=== PATIENT | female | born 1985 | race Caucasian/White ===

== ENCOUNTER 2018-11-16 14:45 | Emergency (ER) | payer OTHER ==
[2018-11-16 14:51] VITALS: TEMP 98.3; BMI 29.0
--- NOTE | 2018-11-16 16:24 | PDOC ---
Rapid Medical Evaluation Chief Complaint: Lightheaded Time Seen by Provider: 11/16/18 16:20 Medical Evaluation: Allergies Allergy/AdvReac Type Severity Reaction Status Date / Time No Known Allergies Allergy Verified 11/16/18 14:48 Vital Signs Temp Pulse Resp BP Pulse Ox 98.3 F 93 H 18 105/61 100 11/16/18 14:49 11/16/18 14:49 11/16/18 14:49 11/16/18 14:49 11/16/18 14:49 Discharge Disposition - Discharge Dispostion Last Admission D/C Date: 04/27/16 - Referrals - Patient Instructions - Post Discharge Activity
--- NOTE | 2018-11-16 17:17 | PDOC ---
History of Present Illness <CorreaMarisa Joshua - Last Filed: 11/16/18 17:53> - General History Source: Patient Exam Limitations: No Limitations - History of Present Illness Initial Comments: 11/16/18 17:00 33 y/o female with no past medical history presents to the ED with c/o intermittent SOB since this am accompanied with palpitations and mild dizziness. Pt s/p liposuction 3 weeks ago performed in [place] and received 1 init of red cells due to similar symptoms. The pt states did not have repeat labs after transfusions. Pt denies fever, chills, abd pain, urinary complaints or redness to abdomen. Timing/Duration: intermittent Severity: mild Associated Symptoms: reports: shortness of breath, other <Milagros Quach - Last Filed: 11/16/18 18:41> - General Chief Complaint: Lightheaded Stated Complaint: LIGHTHEADED, PALPITATIONS Time Seen by Provider: 11/16/18 16:20 Past History <Marisa Correa - Last Filed: 11/16/18 17:53> - Travel Traveled outside of the country in the last 30 days: No Close contact w/someone who was outside of country & ill: No - Past Medical History Asthma: No Cancer: No Cardiac Disorders: No COPD: No Diabetes: No HTN: No Seizures: No Thyroid Disease: No - Suicide/Smoking/Psychosocial Hx Smoking Status: No Smoking History: Never smoked Have you smoked in the past 12 months: No Number of Cigarettes Smoked Daily: 0 Hx Alcohol Use: No Drug/Substance Use Hx: No Hx Substance Use Treatment: No Patient Lives Alone: No Lives with/in: spouse/SO <Milagros Quach - Last Filed: 11/16/18 18:41> - Past Medical History Allergies/Adverse Reactions: Allergies Allergy/AdvReac Type Severity Reaction Status Date / Time No Known Allergies Allergy Verified 11/16/18 14:48 Home Medications: Ambulatory Orders NK [No Known Home Medication] 11/16/18 Review of Systems - Review of Systems Able to Perform ROS?: No Constitutional: No: Symptoms Reported HEENTM: No: Symptoms Reported Respiratory: Yes: Shortness of Breath Cardiac (ROS): Yes: Lightheadedness, Palpitations Musculoskeletal: No: Symptoms Reported Integumentary: No: Symptoms Reported Neurological: No: Symptoms reported <Milagros Quach - Last Filed: 11/16/18 18:41> *Physical Exam - Vital Signs Last Vital Signs Temp Pulse Resp BP Pulse Ox 98.3 F 86 18 92/47 L 98 11/16/18 14:49 11/16/18 17:24 11/16/18 17:24 11/16/18 17:24 11/16/18 17:24 <Marisa Correa - Last Filed: 11/16/18 17:53> - Vital Signs Last Vital Signs Temp Pulse Resp BP Pulse Ox 98.3 F 93 H 18 105/61 100 11/16/18 14:49 11/16/18 14:49 11/16/18 14:49 11/16/18 14:49 11/16/18 14:49 - Physical Exam General Appearance: Yes: Nourished, Appropriately Dressed. No: Apparent Distress HEENT: negative: Pale Conjunctivae Neck: positive: Supple Respiratory/Chest: positive: Lungs Clear, Normal Breath Sounds. negative: Chest Tender, Respiratory Distress, Accessory Muscle Use Cardiovascular: positive: Regular Rhythm, Regular Rate. negative: Murmur Gastrointestinal/Abdominal: positive: Soft. negative: Tenderness Extremity: positive: Normal Capillary Refill. negative: Pedal Edema Integumentary: positive: Normal Color, Warm, Moist Neurologic: positive: Motor Strength 5/5 (ambulatory) <Milagros Quach - Last Filed: 11/16/18 18:41> Moderate Sedation - Procedure Monitoring Vital Signs: Procedure Monitoring Vital Signs Temperature 98.3 F 11/16/18 14:49 Pulse Rate 86 11/16/18 17:24 Respiratory Rate 18 11/16/18 17:24 Blood Pressure 92/47 L 11/16/18 17:24 O2 Sat by Pulse Oximetry (%) 98 11/16/18 17:24 <Marisa Correa - Last Filed: 11/16/18 17:53> - Procedure Monitoring Vital Signs: Procedure Monitoring Vital Signs Temperature 98.3 F 11/16/18 14:49 Pulse Rate 93 H 11/16/18 14:49 Respiratory Rate 18 11/16/18 14:49 Blood Pressure 105/61 11/16/18 14:49 O2 Sat by Pulse Oximetry (%) 100 11/16/18 14:49 <Milagros Quach - Last Filed: 11/16/18 18:41> ED Treatment Course - LABORATORY CBC & Chemistry Diagram: 11/16/18 17:00 11/16/18 17:00 - ADDITIONAL ORDERS Additional order review: 11/16/18 17:00 RBC 3.42 L MCV 95.0 MCHC 35.0 RDW 14.7 D MPV 8.5 Neutrophils % 51.0 D Lymphocytes % 33.8 D Monocytes % 11.6 H D Eosinophils % 1.5 D Basophils % 2.1 H D <Marisa Correa - Last Filed: 11/16/18 17:53> - LABORATORY CBC & Chemistry Diagram: 11/16/18 17:00 11/16/18 17:00 <Milagros Quach - Last Filed: 11/16/18 18:41> Medical Decision Making - Medical Decision Making The patient was seen and evaluated in conjunction with midlevel provider under my direct supervision, ancillary studies were reviewed. I agree with the plan as outlined by Milagros Quach. HPI as outlined. AMA - does not want to wait for results due to home situation. will update with results with clinical callback. 11/16/18 17:53 11/16/18 17:54 <Marisa Correa - Last Filed: 11/16/18 17:53> - Medical Decision Making 11/16/18 17:21 CC: sob, palpitations and weakness x 2-3 days, s/p liposuction 3 weeks ago Exam: no acute findings Plan: cbc, comp, d- dimer, ekg 11/16/18 17:42 Pt states unable to stay and has to get her 2 year old daughter. Pt will sign out AMA but will be contacted if labs are abnormal and states will return if need be 11/16/18 18:40 Laboratory Tests 11/16/18 11/16/18 11/16/18 17:00 17:00 17:00 WBC 6.4 Hgb 11.4 Hct 32.5 Plt Count 458 H D Neutrophils % 51.0 D Monocytes % 11.6 H D D-Dimer 2350 H Sodium 141 Potassium 4.1 Chloride 108 H Carbon Dioxide 26 Anion Gap 7 L BUN 12 Creatinine 0.8 Creat Clearance w eGFR > 60 Random Glucose 72 L Calcium 8.6 Total Bilirubin 0.3 AST 16 ALT 22 Alkaline Phosphatase 60 Total Protein 6.8 Albumin 3.5 Called pt at home and will return to the ED secondary to elevated D-Dimer <Milagros Quach - Last Filed: 11/16/18 18:41> *DC/Admit/Observation/Transfer <Marisa Correa - Last Filed: 11/16/18 17:53> <Milagros Quach - Last Filed: 11/16/18 18:41> Diagnosis at time of Disposition: Palpitations - Discharge Dispostion Disposition: AGAINST MEDICAL ADVICE Condition at time of disposition: Unchanged/Unknown - Patient Instructions Printed Discharge Instructions: DI for Palpitations Additional Instructions: Understand you are leaving Against Medical Advice and are assuming all responsibility for your health. If any results are positive, I will contact you immediately. - Post Discharge Activity Forms/Work/School Notes: Back to Work
[2018-11-16 17:25] VITALS: BP 92/47; PULSE 86
[2018-11-16 17:25] LABS: BASO % 2.1 % (0-2.0); EOS % 1.5 % (0-4.5); HEMATOCRIT 32.5 % (32.4-45.2); HEMOGLOBIN 11.4 GM/dL (10.7-15.3); LYMPH % 33.8 % (8-40); MCH 33.2 pg (25.7-33.7); MEAN PLT VOLUME 8.5 fl (7.5-11.1); MONO % 11.6 % (3.8-10.2); PLATELET COUNT 458 K/MM3 (134-434); RBC 3.42 M/mm3 (3.60-5.2); RDW 14.7 % (11.6-15.6); WHITE BLOOD COUNT 6.4 K/mm3 (4.0-10.0)
[2018-11-16 17:59] LABS: ALBUMIN 3.5 g/dl (3.4-5.0); ALK PHOS 60 U/L (45-117); ANION GAP 7 MMOL/L (8-16); BILIRUBIN,TOTAL 0.3 mg/dL (0.2-1); BLOOD UREA NITROGEN 12 mg/dL (7-18); CALCIUM 8.6 mg/dL (8.5-10.1); CHLORIDE 108 mmol/L (98-107); CO2 26 mmol/L (21-32); CREATININE 0.8 mg/dL (0.55-1.3); GLUCOSE,RANDOM 72 mg/dL (74-106); POTASSIUM 4.1 mmol/L (3.5-5.1); SGOT/AST 16 U/L (15-37); SGPT/ALT 22 U/L (13-61); SODIUM 141 mmol/L (136-145); TOT PROT 6.8 g/dl (6.4-8.2)
--- NOTE | 2018-11-17 19:14 | EKG ---
Test Reason : Blood Pressure : / mmHG Vent. Rate : 085 BPM Atrial Rate : 085 BPM P-R Int : 162 ms QRS Dur : 082 ms QT Int : 352 ms P-R-T Axes : 056 045 041 degrees QTc Int : 418 ms NORMAL SINUS RHYTHM NORMAL ECG NO PREVIOUS ECGS AVAILABLE Confirmed by SKY CHILD, MELANIE ([id number]) on 11/17/2018 7:13:53 PM Referred By: Confirmed By:MELANIE SWANSON MD
== END 2018-11-16 17:31 | disposition left against medical advice (07) ==
LOC: JER 14:45
DX: R00.2 Palpitations (principal)
CPT/HCPCS: 36415; 80053; 85025; 85379; 93005; 93010; 99282-25

== ENCOUNTER 2018-11-16 19:28 | Emergency (ER) | payer OTHER ==
[2018-11-16 19:35] VITALS: BMI 29.8
--- NOTE | 2018-11-16 20:03 | PDOC ---
History of Present Illness - General Chief Complaint: Palpitations Stated Complaint: PCP SENT/CATSCAN Time Seen by Provider: 11/16/18 19:38 History Source: Patient Exam Limitations: No Limitations - History of Present Illness Initial Comments: 11/16/18 19:53 33 YOF who had tummy tuck 3 weeks ago, 7 hour flight one week ago, p/w palpitations, SOB, strange sensation in her left anterior superior chest unlike any sensation she has had before. Denies any chance of being . Took no medications for her symptoms. Has not had SOB or palpitations. Used to have palpitations and syncope associated with anemia and has had blood xfused in the past for this. Had blood xfusion after her tummy tuck 3 weeks ago. Was seen here in the ED earlier today and had D-dimer >2000 but had to leave AMA before this had resulted because of childcare concerns. Was called with the results and asked to come back. She is not on exogenous hormones, denies leg pain/ swelling, no hemoptysis. Past History - Past Medical History Allergies/Adverse Reactions: Allergies Allergy/AdvReac Type Severity Reaction Status Date / Time No Known Allergies Allergy Verified 11/16/18 19:33 Home Medications: Ambulatory Orders NK [No Known Home Medication] 11/16/18 Asthma: No Cancer: No Cardiac Disorders: No COPD: No Diabetes: No HTN: No Seizures: No Thyroid Disease: No - Suicide/Smoking/Psychosocial Hx Smoking Status: No Smoking History: Never smoked Have you smoked in the past 12 months: No Number of Cigarettes Smoked Daily: 0 Hx Alcohol Use: No Drug/Substance Use Hx: No Hx Substance Use Treatment: No Review of Systems - Review of Systems Able to Perform ROS?: Yes Comments:: 11/16/18 20:16 GEN: no fever, chills, malaise, generalized weakness, or weight change HEENT: no ear pain, sore throat, vision change, or eye pain CV: chest discomfort, palpitations, no lightheadedness, syncope, or edema RESP: SOB, no cough, or wheezing GI: no abdominal pain, nausea, vomiting, diarrhea, constipation, or white/black/ bloody stool : no dysuria, hematuria, incontinence, retention, bleeding, or discharge MSK: no neck/back pain, muscle weakness/pain, or joint swelling/pain NEURO: no headache, seizure, vertigo, numbness, tingling, or focal weakness PSYCH: no substance use, no behavior change SKIN: no jaundice, no rash ROS otherwise negative except as noted in HPI *Physical Exam - Vital Signs Last Vital Signs Temp Pulse Resp BP Pulse Ox 98.2 F 72 20 102/73 98 11/17/18 00:51 11/17/18 00:51 11/17/18 00:51 11/17/18 00:51 11/17/18 00:51 - Physical Exam Comments: 11/16/18 20:17 GENERAL: well-appearing, a bit anxious, accompanied by , A/Ox4, no distress, answers questions appropriately, occasionally tearful HEENT: PERRLA, EOMI, moist mucous membranes NECK/BACK: no midline ttp, no spinal stepoff or deformity, no hematoma, full ROM , neck supple CARDIOVASCULAR: regular rate/rhythm, normal S1S2, no MGR, strong peripheral pulses, capillary refill <2 seconds, extremities wwp, no edema CHEST WALL: no tenderness to compression, no skin changes, no costal stepoff/ deformity LUNGS/RESPIRATORY: no respiratory distress, CTAB GI/ABDOMEN: symmetric [id number], normoactive BS, soft, no ttp, no midline pulsatile masses : no CVA tenderness EXTREMITIES: no muscle atrophy, no acute deformity, no edema, no calf tenderness SKIN: warm and dry, no pallor, no jaundice, no rash, no bruising, no skin breakdown, no cuts, no lesions NEUROLOGICAL: GCS 15, CN II-XII grossly intact, 5/5 strength proximally and distally, no facial droop Moderate Sedation - Procedure Monitoring Vital Signs: Procedure Monitoring Vital Signs Temperature 98.2 F 11/17/18 00:51 Pulse Rate 72 11/17/18 00:51 Respiratory Rate 20 11/17/18 00:51 Blood Pressure 102/73 11/17/18 00:51 O2 Sat by Pulse Oximetry (%) 98 11/17/18 00:51 ED Treatment Course - ADDITIONAL ORDERS Additional order review: Laboratory Results 11/16/18 20:00 Urine Color Ltyellow Urine Appearance Clear Urine pH 6.0 Ur Specific [place] 1.015 Urine Protein Negative Urine Glucose (UA) Negative Urine Ketones Negative Urine Blood Negative Urine Nitrite Negative Urine Bilirubin Negative Urine Urobilinogen Negative Ur Leukocyte Esterase Negative Urine HCG, Qual Negative - RADIOLOGY Radiology Studies Ordered: Category Date Time Status CHEST CTA [CT] Stat CT Scan 11/16/18 19:41 Completed DUPLEX VASCUL US-2LEGS [US] Stat Ultrasound 11/16/18 22:50 Completed Medical Decision Making - Medical Decision Making 11/16/18 20:18 Adult female patient p/w SOB, palpitations, strange sensation in chest. Initial Vital Signs Temp Pulse Resp BP Pulse Ox 98.4 F 67 18 93/61 100 11/16/18 19:33 11/16/18 19:33 11/16/18 19:33 11/16/18 19:33 11/16/18 19:33 Exam: As noted in Physical Exam section. DDX IBNLT: PE, tachyarrhythmia (e.g. SVT, re-entrant tachycardia, WPW, Brugada, long QT, AF/AFL w/ RVR, MAT, ventricular dysrhythmia), ischemia (ACS), structural heart condition (MVP, mitral stenosis, atrial enlargement, HOCM), anxiety/panic, hypoxia, anemia (e.g. hemorrhage from heavy menstruation, ruptured ectopic, etc), PE, PTX, bronchitis/PNA, sepsis/shock, tamponade, metabolic (e.g. DKA, hypoglycemia), thyroid condition, catecholamine surge ( e.g. pheochromocytoma), anxiety/panic disorder, medication effect, substance use , etc. W/U ordered: Labs were previously completed; added are UA, UCx, hCG, chest CTA, EKG TX ordered: IV Tele monitor EKG: Reviewed; results as noted in ECG Review section. CT PE protocol: nothing acute Laboratory Tests 11/16/18 20:00 Urine Color Ltyellow Urine Appearance Clear Urine pH 6.0 Ur Specific [place] 1.015 Urine Protein Negative Urine Glucose (UA) Negative Urine Ketones Negative Urine Blood Negative Urine Nitrite Negative Urine Bilirubin Negative Urine Urobilinogen Negative Ur Leukocyte Esterase Negative Urine HCG, Qual Negative Reassessment: Patient noting mild lightheadedness similar to chronic. Also noting mild BLE pain and tingling. I have placed order for Duplex BLE r/o DVT. Repeat VS: DISCHARGE The Pt has gotten significant relief of symptoms while in the ED. She does not have workup findings concerning for life-threatening arrhythmia or other dangerous cause. She is appropriate for discharge home with close outpatient f/u. She and her parents are comfortable with this plan. They state they will follow up with her primary care provider in 1-3 days. Return precautions are discussed with Pt and family and she will come back to the ER if necessary. *DC/Admit/Observation/Transfer Diagnosis at time of Disposition: Palpitations, Lightheadedness - Discharge Dispostion Disposition: HOME Condition at time of disposition: Stable Decision to Admit order: No - Referrals [place] [facility] [place] [facility] [place] Group] - Patient Instructions Printed Discharge Instructions: DI for Palpitations Additional Instructions: You were seen in the ER for palpitations, lightheadedness, and strange sensation in your chest. We did lab work on the blood and urine, an electrocardiogram, CT scan imaging of the chest, and ultrasound imaging of the legs. We did not see any blood clot. All the symptoms had resolved by the end of your ER visit. After our assessment, we do not believe you are having a medical emergency at this time, and we believe you are safe to go home. Please stay well hydrated and eat a balanced diet. Please follow up with your primary care provider(s) in 1-3 days. We are giving you referral info in this packet. Call their clinic as soon as possible, tell them you were seen in the ER for passing out, and tell them you need an appointment. If you have any new or worsening symptoms, especially another episode of fainting, palpitations, chest discomfort, shortness of breath, sweats, nausea, or other symptoms, please come back to the ER at any time (24 hours a day). If you are having severe or life threatening symptoms, or symptoms that make it unsafe to drive or have someone drive you, please call 911. - Post Discharge Activity Forms/Work/School Notes: Back to Work
--- NOTE | 2018-11-16 20:10 | PDOC ---
Attending Attestation - Resident Resident Name: Elayne Noyola - ED Attending Attestation I have performed the following: I have examined & evaluated the patient, The case was reviewed & discussed with the resident, I agree w/resident's findings & plan, Exceptions are as noted - HPI HPI: 11/16/18 20:58 The patient is a 33 year old female, with a significant PMH of who presents to the emergency department with palpitations, shortness of breath, and a strange sensation to the left anterior chest today. The patient states she had a tummy tuck 3 weeks ago and 7 hour flight a week ago. Patient was seen in this ED earlier today, and was found to have a D-Dimer >2000 but left AMA prior to having a CTA performed. Patient returns as her symptoms are persistent. The patient denies chest pain, headache and dizziness. Denies fever, chills, nausea, vomit, diarrhea and constipation. Denies dysuria, frequency, urgency and hematuria. Allergies: NKA Past surgical history: None reported. Social history: No reported alcohol, drug or cigarette use. - Physicial Exam PE: 11/16/18 21:45 GENERAL: The patient is awake, alert, and fully oriented, Nontoxic - in no acute distress. HEAD: Normocephalic, atraumatic. EYES: extraocular movements intact, sclera anicteric, conjunctiva clear. ENT: Normal voice, Moist mucous membranes. NECK: Normal range of motion, supple LUNGS: Breath sounds equal, clear to auscultation bilaterally. No wheezes, no rhonchi, no rales. HEART: Regular rate and rhythm, normal S1 and S2 without murmur, rub or gallop. ABDOMEN: Soft, nontender, normoactive bowel sounds. No guarding, no rebound. . No CVA tenderness EXTREMITIES: Normal range of motion, neg homans, no calf tenderness NEUROLOGICAL: No facial assymetry, Normal speech, PSYCH: Normal mood, normal affect. SKIN: Warm, Dry, normal turgor, - Medical Decision Making 11/16/18 20:10 33y F no pmhx presents with chest discomfort and occasional palpitatinos. recently had a abdominoplasty 3 weeks ago and a recent flight. pt denies hemoptysis, LE edema, chest pain, l[place]en. no hx of pe/dvts. pt was here earlier today, had lab work obtained with dimer of 2k, but had to leave due to lack of child support agent and is now here to complete her care. will obtain CTA to r/o PE pt well appearing otherwise 11/16/18 21:45 11/16/18 23:03 cta negative for pe will obtain duplex to r/o dvt dimer may be elevated secondary to her procedure
[2018-11-16 20:26] LABS: URINE APPEARANCE CLEAR; URINE BILIRUBIN NEGATIVE (<2.0 mg/dL); URINE COLOR LTYELLOW; URINE GLUCOSE (UA) NEGATIVE (NEGATIVE); URINE KETONE NEGATIVE (NEGATIVE); URINE LEUK ESTERASE NEGATIVE (NEGATIVE); URINE NITRITE NEGATIVE (NEGATIVE); URINE PROTEIN NEGATIVE (NEGATIVE); URINE UROBILINOGEN NEGATIVE mg/dL (0.2-1.0)
[2018-11-16 20:27] LABS: HCG,QUALITATIVE URINE Negative
[2018-11-17 00:52] VITALS: BP 102/73; PULSE 72; TEMP 98.2
== END 2018-11-17 01:03 | disposition home or self-care (01) ==
LOC: JER 19:28
DX: R00.2 Palpitations (principal); R42 Dizziness and giddiness; M79.604 Pain in right leg; M79.605 Pain in left leg; R20.2 Paresthesia of skin
CPT/HCPCS: 71275-TC; 81003; 84703; 87086; 87186; 93970-TC; 99283-25

== ENCOUNTER 2019-02-25 00:50 | Observation (INO) | payer OTHER ==
[2019-02-25 01:26] VITALS: BMI 29.0
[2019-02-25] MEDS ORDERED: SODIUM CHLORIDE 0.9% 500 ML INFUS.BAG IV ONE (01:29)
[2019-02-25] MEDS ORDERED: ACETAMINOPHEN 1000 MG/100 ML VIAL (NON FORMULARY) IVPB ONE (01:29)
--- NOTE | 2019-02-25 01:30 | PDOC ---
History of Present Illness - General Stated Complaint: ABDOMINAL PAIN History Source: Patient Exam Limitations: No Limitations - History of Present Illness Initial Comments: 33YOF with h/o abdominoplasty performed by a surgeon in [facility] in 10/2018, who p/w surgical incision irritation worsening for the past 2 weeks and now 1 week of worsening intra-abdominal pain worse on the right side. She notes this all started when she began using a lightening cream on the surgical scar from her abdominoplasty about 3 weeks ago. She only used it for 3 days because it started to become irritated. It has been worsening since that time and now is sore. She has been having nausea as well, but no f/c, vomiting, diarrhea, constipation, numbness, tingling, weakness, SOB, chest pain, or dysuria. She notes some increased white vaginal discharge. Her LMP was 3 weeks ago and she does not know whether or she not she may be . Past History - Past Medical History Allergies/Adverse Reactions: Allergies Allergy/AdvReac Type Severity Reaction Status Date / Time No Known Allergies Allergy Verified 11/16/18 19:33 Home Medications: Ambulatory Orders NK [No Known Home Medication] 11/16/18 Asthma: No Cancer: No Cardiac Disorders: No COPD: No Diabetes: No HTN: No Seizures: No Thyroid Disease: No - Suicide/Smoking/Psychosocial Hx Smoking Status: No Smoking History: Never smoked Have you smoked in the past 12 months: No Number of Cigarettes Smoked Daily: 0 Hx Alcohol Use: No Drug/Substance Use Hx: No Hx Substance Use Treatment: No Review of Systems - Review of Systems Able to Perform ROS?: Yes Comments:: 02/25/19 02:07 GEN: no fever, chills, malaise, generalized weakness, or weight change HEENT: no ear pain, sore throat, vision change, or eye pain CV: no chest pain, palpitations, lightheadedness, syncope, or edema RESP: no cough, wheezing, or SOB GI: abdominal pain, nausea, no vomiting, diarrhea, constipation, or white/black/ bloody stool : no dysuria, hematuria, incontinence, retention, bleeding, or discharge MSK: no neck/back pain, muscle weakness/pain, or joint swelling/pain NEURO: no headache, seizure, vertigo, numbness, tingling, or focal weakness PSYCH: no substance use, no behavior change SKIN: incisional irritation, no jaundice, no rash ROS otherwise negative except as noted in HPI *Physical Exam - Physical Exam Comments: 02/25/19 02:08 GENERAL: a bit uncomfortable but nontoxic-appearing, A/Ox4, no distress except winces when repositioning, answers questions appropriately, accompanied by at bedside HEENT: PERRLA, EOMI, moist mucous membranes NECK/BACK: no midline ttp, no spinal stepoff or deformity, no hematoma, full ROM , neck supple CARDIOVASCULAR: regular rate/rhythm, normal S1S2, no MGR, strong peripheral pulses, capillary refill <2 seconds, extremities wwp, no edema LUNGS/RESPIRATORY: no respiratory distress, CTAB GI/ABDOMEN: low transverse abdominoplasty scar appears healed but with overlying skin desquamation and underlying raw dermis which is all tender, umbilicus with similar desquamation with small amount of active purulent- appearing drainage, abdomen with mild fullness to the right periumbilical area where there is also increased tenderness, mild rebound tenderness, normoactive BS, no midline pulsatile masses : no CVA tenderness, pelvic normal externally, small amount of physiologic- appearing white discharge, no adnexal ttp or CMT EXTREMITIES: no muscle atrophy, no acute deformity SKIN: warm and dry, no pallor, no jaundice, no rash, no bruising, no skin breakdown, no cuts, no lesions NEUROLOGICAL: GCS 15, CN II-XII grossly intact, 5/5 strength proximally and distally, no facial droop ED Treatment Course - LABORATORY CBC & Chemistry Diagram: 02/25/19 02:21 02/25/19 02:21 Medical Decision Making - Medical Decision Making 02/25/19 02:04 33YOF p/w right sided abdominal pain and surgical incision irritation from procedure done in [facility] 5 months ago. Initial Vital Signs Temp Pulse Resp BP Pulse Ox 98.0 F 67 18 116/74 99 02/25/19 01:16 02/25/19 01:16 02/25/19 01:16 02/25/19 01:16 02/25/19 01:16 Exam: As noted in Physical Exam section. DDX IBNLT: intraabdominal abscess or seroma, cholecystitis (calculous vs. acalculous), choledocholithiasis, cholangitis, pancreatitis, appendicitis, gastritis, PUD, colitis, diverticulitis wwo abscess or perforation, renal colic , obstructive uropathy, UTI/pyelonephritis, hernia, SBO, mesenteric/bowel ischemia, bowel perforation, malignancy, ovarian torsion, ovarian cyst, ectopic , PID, TOA, cervicitis, endometriosis, constipation, etc. W/U ordered: Labs as noted below, CT A/P with IV contrast TX ordered: IVF Ofirmev Laboratory Tests 02/25/19 02/25/19 02/25/19 02:21 02:21 02:21 WBC 8.4 RBC 4.04 Hgb 12.6 Hct 37.3 MCV 92.4 MCH 31.2 MCHC 33.7 RDW 13.7 Plt Count 259 D MPV 8.8 Absolute Neuts (auto) 4.1 Neutrophils % 48.3 Lymphocytes % 41.2 H D Monocytes % 8.0 Eosinophils % 1.8 Basophils % 0.7 Nucleated RBC % 0 PT with INR 11.10 INR 0.94 PTT (Actin FS) 28.7 Sodium Potassium Chloride Carbon Dioxide Anion Gap BUN Creatinine Creat Clearance w eGFR Random Glucose Lactic Acid Calcium Phosphorus Magnesium Total Bilirubin AST ALT Alkaline Phosphatase Total Protein Albumin Lipase Serum , Qual Negative Urine Color Urine Appearance Urine pH Ur Specific [place] Urine Protein Urine Glucose (UA) Urine Ketones Urine Blood Urine Nitrite Urine Bilirubin Urine Urobilinogen Ur Leukocyte Esterase 02/25/19 02/25/19 02/25/19 02:21 02:21 02:28 WBC RBC Hgb Hct MCV MCH MCHC RDW Plt Count MPV Absolute Neuts (auto) Neutrophils % Lymphocytes % Monocytes % Eosinophils % Basophils % Nucleated RBC % PT with INR INR PTT (Actin FS) Sodium 139 Potassium 3.8 Chloride 106 Carbon Dioxide 26 Anion Gap 8 BUN 13 Creatinine 0.8 Creat Clearance w eGFR 83.66 Random Glucose 87 Lactic Acid 0.8 Calcium 9.0 Phosphorus 3.7 Magnesium 2.0 Total Bilirubin 0.3 AST 14 L ALT 31 Alkaline Phosphatase 50 Total Protein 7.1 Albumin 3.6 Lipase 190 Serum , Qual Urine Color Yellow Urine Appearance Clear Urine pH 5.5 Ur Specific [place] 1.033 Urine Protein Negative Urine Glucose (UA) Negative Urine Ketones Trace H Urine Blood Negative Urine Nitrite Negative Urine Bilirubin Negative Urine Urobilinogen 1.[address] CT A/P: Reassessment: Patient still painful and tender, comfortable staying. 02/25/19 04:15 The Pts symptoms persist despite ED treatments. The Pt is unsafe for discharge at this time. They require further hospital observation, workup, and treatment. Microblog sent to [facility] for admission. Blank Decision to Admit order is placed per ED protocol. 02/25/19 05:[address] Bailey, in agreement patient going to Med/Surg. Decision to Admit order corrected. *DC/Admit/Observation/Transfer Diagnosis at time of Disposition: Pain in surgical scar, Intractable abdominal pain - Discharge Dispostion Condition at time of disposition: Guarded Decision to Admit order: Yes - Referrals - Patient Instructions - Post Discharge Activity
--- NOTE | 2019-02-25 01:33 | PDOC ---
Attending Attestation - HPI HPI: 02/25/19 01:48 The patient is a 33-year-old female with a past medical history of tummy tuck presents to the emergency department with abdominal pain. The patient reports in October 2018, and the patient had a tummy tuck surgery in [facility]. The patient reports the incision was healing well until 3 weeks ago. The patient states she used a lightening cream she bought online on the incision site and 3 days later she developed a reaction to the site. The patient reports since then the reactions been worsening, currently she had diffused abdominal pain, with associated symptoms of nausea, and vaginal discharge. - Physicial Exam PE: 02/25/19 02:11 GENERAL: Awake, alert, and fully oriented, in no acute distress HEAD: No signs of trauma EYES: PERRLA, EOMI, sclera anicteric, conjunctiva clear ENT: Auricles normal inspection, hearing grossly normal, nares patent, oropharynx clear without exudates. Moist mucosa NECK: Normal ROM, supple, no lymphadenopathy, JVD, or masses LUNGS: Breath sounds equal, clear to auscultation bilaterally. No wheezes, and no crackles HEART: Regular rate and rhythm, normal S1 and S2, no murmurs, rubs or gallops ABDOMEN: +umbilical gooey cellulitis inside, suprapunic scar from the left to the right, expanding entire width, no surrounding cellulitis, +redness, dark brown cracked skin, irritated skin. Periumbilical pain, minimal rebound, minimal guarding. No flank pain. EXTREMITIES: Normal range of motion, no edema. No clubbing or cyanosis. No cords, erythema, or tenderness NEUROLOGICAL: Cranial nerves II through XII grossly intact. Normal speech. SKIN: Warm, Dry, normal turgor, no rashes or lesions noted. - Medical Decision Making 02/25/19 01:48 Documentation prepared by Kajal Dudley, acting as infertility medical assistant for Lynette Goode MD. <Kajal Dudley - Last Filed: 02/25/19 02:11> - Resident Resident Name: Elayne Noyola - ED Attending Attestation I have performed the following: I have examined & evaluated the patient, The case was reviewed & discussed with the resident, I agree w/resident's findings & plan - Medical Decision Making 02/25/19 04:13 Labs normal. Pt has a cellulitic infection of her umbilicus and she will be admitted to med surg ob for surg eval. 02/25/19 04:59 Patient Name: YASMANY WHITEHEAD THIS IS A PRELIMINARY REPORT FROM [facility] DATE OF SERVICE: 2019-02-25 03:33:11 IMAGES: 464 EXAM: CT abdomen and pelvis with intravenous contrast. HISTORY: Abdominal pain COMPARISON: None. FINDINGS: 1. Trace pelvic free fluid, likely physiologic. 2. Limited evaluation of bowel due to the lack of oral contrast, however, there is no bowel obstruction. 3. Negative for free intraperitoneal air. 4. Unremarkable appendix without appendicitis. 5. Kidneys enhance symmetrically without hydronephrosis. 6. Probable mild dependent subcutaneous edema 02/25/19 06:38 <Lynette Goode - Last Filed: 02/25/19 06:38>
[2019-02-25 02:31] LABS: BASO % 0.7 % (0-2.0); EOS % 1.8 % (0-4.5); HEMATOCRIT 37.3 % (32.4-45.2); HEMOGLOBIN 12.6 GM/dL (10.7-15.3); LYMPH % 41.2 % (8-40); MCH 31.2 pg (25.7-33.7); MCHC 33.7 g/dl (32.0-36.0); MEAN CELL VOLUME 92.4 fl (80-96); MEAN PLT VOLUME 8.8 fl (7.5-11.1); NEUT % 48.3 % (42.8-82.8); PLATELET COUNT 259 K/MM3 (134-434); RBC 4.04 M/mm3 (3.60-5.2); RDW 13.7 % (11.6-15.6); WHITE BLOOD COUNT 8.4 K/mm3 (4.0-10.0)
[2019-02-25] MEDS ORDERED: ACETAMINOPHEN INJECTION 100 ML IVPB ONE (02:31)
[2019-02-25 02:41] LABS: PH,URINE 5.5 (5.0-8.0); URINE APPEARANCE CLEAR; URINE BILIRUBIN NEGATIVE (NEGATIVE); URINE COLOR YELLOW; URINE GLUCOSE (UA) NEGATIVE (NEGATIVE); URINE KETONE TRACE (NEGATIVE); URINE LEUK ESTERASE NEGATIVE (NEGATIVE); URINE NITRITE NEGATIVE (NEGATIVE); URINE PROTEIN NEGATIVE (NEGATIVE)
[2019-02-25 02:44] LABS: INR 0.94 (0.83-1.09); PROTHROMBIN TIME (PATIENT) 11.1 SEC (9.7-13.0)
[2019-02-25 02:46] LABS: ACTIVATED PTT 28.7 SECONDS (25.2-36.5)
[2019-02-25 02:59] LABS: ALBUMIN 3.6 g/dl (3.4-5.0); ALK PHOS 50 U/L (45-117); ANION GAP 8 MMOL/L (8-16); BILIRUBIN,TOTAL 0.3 mg/dL (0.2-1); BLOOD UREA NITROGEN 13 mg/dL (7-18); CHLORIDE 106 mmol/L (98-107); CO2 26 mmol/L (21-32); CREATININE 0.8 mg/dL (0.55-1.3); GLUCOSE,RANDOM 87 mg/dL (74-106); LIPASE 190 U/L (73-393); PHOSPHOROUS 3.7 mg/dL (2.5-4.9); POTASSIUM 3.8 mmol/L (3.5-5.1); SGOT/AST 14 U/L (15-37); SGPT/ALT 31 U/L (13-61); SODIUM 139 mmol/L (136-145); TOT PROT 7.1 g/dl (6.4-8.2)
[2019-02-25] MEDS ORDERED: PIPERACILLIN/TAZOB 3.375 GM 3.375 GM in DEXTROSE 5%-WATER - 50 ML IVPB ONE (05:09)
[2019-02-25] MEDS ORDERED: PIPERACILLIN/TAZOB 3.375 GM 3.375 GM/50 ML BAG IVPB ONE (05:12)
--- NOTE | 2019-02-25 05:47 | HP ---
CHIEF COMPLAINT: skin reaction, abdominal pain PCP: Sarah Antoine HISTORY OF PRESENT ILLNESS: This is a 33 year old female with a past medical history of abdominoplasty 2017 in [place] who presents to the ED with abdominal pain and skin reaction x 2 weeks. Pt reports that she began using a skin lightening cream ([place] my skin ultrapotent brightening serum with 2% hydroquinone as active ingredient) on her surgical scars approximately 3 weeks ago for about 3 days but she stopped it when she noticed redness and irritation developing. The redness and irritation has progressively worsened along with abdominal pain and nausea, worse x 4 days. She noticed discharge from the umbilicus region about 4 days ago as well. She denies vomiting, diarrhea, constipation, chest pain, SOB, cough , fever or urinary symptoms. ER course was notable for: (1) WBC 8.4 (2) CT abd/pel without acute findings Recent Travel: pt denies travel since returning from [place] in October PAST MEDICAL HISTORY: pt denies PAST SURGICAL HISTORY: abdominoplasty 10/2018 x 2 Social History: Smoking: pt denies Alcohol: pt denies Drugs: pt denies Family History: mother alive and well maternal grandmother with DM father unk Allergies No Known Allergies Allergy (Verified 11/16/18 19:33) HOME MEDICATIONS: oral contraceptive--pt unsure which one, instructed to bring in REVIEW OF SYSTEMS CONSTITUTIONAL: Absent: fever, chills, diaphoresis, generalized weakness, malaise, loss of appetite, weight change HEENT: Absent: rhinorrhea, nasal congestion, throat pain, throat swelling, difficulty swallowing, mouth swelling, ear pain, eye pain, visual changes CARDIOVASCULAR: Absent: chest pain, syncope, palpitations, irregular heart rate, lightheadedness , peripheral edema RESPIRATORY: Absent: cough, shortness of breath, dyspnea with exertion, orthopnea, wheezing, stridor, hemoptysis GASTROINTESTINAL: Present: abdominal pain Absent: abdominal distension, nausea, vomiting, diarrhea, constipation, melena, hematochezia GENITOURINARY: Absent: dysuria, frequency, urgency, hesitancy, hematuria, flank pain, genital pain MUSCULOSKELETAL: Absent: myalgia, arthralgia, joint swelling, back pain, neck pain SKIN: Present: redness, irritation to abdominal surgical scars Absent: rash, itching, pallor HEMATOLOGIC/IMMUNOLOGIC: Absent: easy bleeding, easy bruising, lymphadenopathy, frequent infections ENDOCRINE: Absent: unexplained weight gain, unexplained weight loss, heat intolerance, cold intolerance NEUROLOGIC: Absent: headache, focal weakness or paresthesias, dizziness, unsteady gait, seizure, mental status changes, bladder or bowel incontinence PSYCHIATRIC: Absent: anxiety, depression, suicidal or homicidal ideation, hallucinations. PHYSICAL EXAMINATION Vital Signs - 24 hr 3 02/25/19 02/25/19 01:16 05:36 Temperature 98.0 F Pulse Rate 67 Respiratory 18 Rate Blood Pressure 116/74 O2 Sat by Pulse 99 98 Oximetry (%) GENERAL: Awake, alert, and fully oriented, in no acute distress. HEAD: Normal with no signs of trauma. EYES: Pupils equal, round and reactive to light, extraocular movements intact, sclera anicteric, conjunctiva clear. No lid lag. EARS, NOSE, THROAT: Ears normal, nares patent, oropharynx clear without exudates. Moist mucous membranes. NECK: Normal range of motion, supple without lymphadenopathy, JVD, or masses. LUNGS: Breath sounds equal, clear to auscultation bilaterally. No wheezes, and no crackles. No accessory muscle use. HEART: Regular rate and rhythm, normal S1 and S2 without murmur, rub or gallop. ABDOMEN: Soft, tender to palpation especially periumbilical region, not distended, normoactive bowel sounds, no rebound, no masses. No hepatomegaly or splenomegaly. skin suprapubic region/lower abdominal region with darkening and crusting around surgical scar. Some areas of desquamation, no purulent discharge. Umbilicus with crusting, erythema, and yellow discharge noted to open areas. MUSCULOSKELETAL: Normal range of motion at all joints. No bony deformities or tenderness. No CVA tenderness. UPPER EXTREMITIES: 2+ pulses, warm, well-perfused. No cyanosis. No clubbing. No peripheral edema. LOWER EXTREMITIES: 2+ pulses, warm, well-perfused. No calf tenderness. No peripheral edema. NEUROLOGICAL: Cranial nerves II-XII intact. Normal speech. Normal gait. PSYCHIATRIC: Cooperative. Good eye contact. Appropriate mood and affect. SKIN: Warm, dry, normal turgor, no rashes or lesions noted except abdomen as above, normal capillary refill. Laboratory Results - last 24 hr 3 02/25/19 02/25/19 02/25/19 02:21 02:21 02:21 WBC 8.4 RBC 4.04 Hgb 12.6 Hct 37.3 MCV 92.4 MCH 31.2 MCHC 33.7 RDW 13.7 Plt Count 259 D MPV 8.8 Absolute Neuts (auto) 4.1 Neutrophils % 48.3 Lymphocytes % 41.2 H D Monocytes % 8.0 Eosinophils % 1.8 Basophils % 0.7 Nucleated RBC % 0 PT with INR 11.10 INR 0.94 PTT (Actin FS) 28.7 Sodium Potassium Chloride Carbon Dioxide Anion Gap BUN Creatinine Creat Clearance w eGFR Random Glucose Lactic Acid Calcium Phosphorus Magnesium Total Bilirubin AST ALT Alkaline Phosphatase Total Protein Albumin Lipase Serum , Qual Negative Urine Color Urine Appearance Urine pH Ur Specific [place] Urine Protein Urine Glucose (UA) Urine Ketones Urine Blood Urine Nitrite Urine Bilirubin Urine Urobilinogen Ur Leukocyte Esterase Blood Type Antibody Screen 3 02/25/19 02/25/19 02/25/19 02:21 02:21 02:21 WBC RBC Hgb Hct MCV MCH MCHC RDW Plt Count MPV Absolute Neuts (auto) Neutrophils % Lymphocytes % Monocytes % Eosinophils % Basophils % Nucleated RBC % PT with INR INR PTT (Actin FS) Sodium 139 Potassium 3.8 Chloride 106 Carbon Dioxide 26 Anion Gap 8 BUN 13 Creatinine 0.8 Creat Clearance w eGFR 83.66 Random Glucose 87 Lactic Acid 0.8 Calcium 9.0 Phosphorus 3.7 Magnesium 2.0 Total Bilirubin 0.3 AST 14 L ALT 31 Alkaline Phosphatase 50 Total Protein 7.1 Albumin 3.6 Lipase 190 Serum , Qual Urine Color Urine Appearance Urine pH Ur Specific [place] Urine Protein Urine Glucose (UA) Urine Ketones Urine Blood Urine Nitrite Urine Bilirubin Urine Urobilinogen Ur Leukocyte Esterase Blood Type O POSITIVE Antibody Screen Negative 3 Urine Color Yellow 02/25/19 02:28 Urine Appearance Clear 02/25/19 02:28 Urine pH 5.5 (5.0-8.0) 02/25/19 02:28 Ur Specific [place] 1.033 (1.010-1.035) 02/25/19 02:28 Urine Protein Negative (NEGATIVE) 02/25/19 02:28 Urine Glucose (UA) Negative (NEGATIVE) 02/25/19 02:28 Urine Ketones Trace (NEGATIVE) H 02/25/19 02:28 Urine Blood Negative (NEGATIVE) 02/25/19 02:28 Urine Nitrite Negative (NEGATIVE) 02/25/19 02:28 Urine Bilirubin Negative (NEGATIVE) 02/25/19 02:28 Urine Urobilinogen 1.0 02/25/19 02:28 Ur Leukocyte Esterase Negative (NEGATIVE) 02/25/19 02:[address] abdomen/pelvis with intravenous contrast THIS IS A PRELIMINARY REPORT FROM [facility] DATE OF SERVICE: 2019-02-25 03:33:11 FINDINGS: 1. Trace pelvic free fluid, likely physiologic. 2. Limited evaluation of bowel due to the lack of oral contrast, however, there is no bowel obstruction. 3. Negative for free intraperitoneal air. 4. Unremarkable appendix without appendicitis. 5. Kidneys enhance symmetrically without hydronephrosis. 6. Probable mild dependent subcutaneous edema THIS DOCUMENT HAS BEEN ELECTRONICALLY SIGNED Eron Gaxiola M.D 02/25/2019 04:56 EST ASSESSMENT/PLAN: 33yF with [facility] abdominoplasty 10/2018 presented with abdominal pain and skin irritation following use of a lightening cream. Contact dermatitis with superimposed bacterial infection/cellulitis - cephalexin 1g q8h - wound culture obtained from umbilicus, follow results - consider plastic surgery consult - cleanse with NS, pat dry, cover with dry protective dressing, use minimal tape - tylenol for pain DVT PPX - deferred as expected LOS less than 48h FEN - tolerating po - BMP in am - regular diet as tolerated Dispo: Pt currently requires further observation for management of her emergent condition. Visit type - Emergency Visit Emergency Visit: Yes ED Registration Date: 02/25/19 Care time: The patient presented to the Emergency Department on the above date and was hospitalized for further evaluation of their emergent condition. - New Patient This patient is new to me today: Yes Date on this admission: 02/25/19 - Critical Care Critical Care patient: No
[2019-02-25] MEDS ORDERED: CEFAZOLIN 1 GM in DEXTROSE 5%-WATER - 50 ML IVPB SCH (10:00)
[2019-02-25] MEDS ORDERED: CEFAZOLIN 1 GM/D5W 1 GM/50 ML BAG ONE (10:12)
[2019-02-25] MEDS ORDERED: SILVER SULFADIAZINE 1% TOP CREAM 50 GM JAR TP SCH (10:15)
--- NOTE | 2019-02-25 15:48 | DS ---
Physical Exam: SUBJECTIVE: Patient seen and examined this morning and later this afternoon. Patient had tummy tuck in [facility] in October 2018, she reports no surgical complications post surgery. She developed darkening of the surgical wound and attempted to lighten the scar with an over the counter lightening cream and applied it to the lower surgical and umbilicus. After applying it, she developed what appears to look like a superficial burn. She states she has some pain around the right side of the umbilicus but it does not get in the way of her ADLs nor is she nauseous or vomiting. During her observation stay in the hospital she was given breakfast and lunch and tolerated it without any difficulty. She denies any further abdominal pain , denies any nausea or vomiting. OBJECTIVE: I ordered silvadene cream for the lower part of her abdomen and instructed her to use it for a few days to see if it helps, if it does not help, her instructed her to stop using silvadene and follow up with her PCP for further recommendations. Also gave her a referral to a plastic surgeon. A prescription for Kelfex 500mg bid x 10 days was sent to her pharmacy. Vital Signs Period Temp Pulse Resp BP Sys/Mccollum Pulse Ox Last 24 Hr 98.0 F-98.5 F 55-67 18-20 112-116/62-74 97-100 PHYSICAL EXAM GENERAL: Awake, alert, and fully oriented, in no acute distress. HEAD: Normal with no signs of trauma. EYES: Pupils equal, round and reactive to light, extraocular movements intact, sclera anicteric, conjunctiva clear. No lid lag. EARS, NOSE, THROAT: Ears normal, nares patent, oropharynx clear without exudates. Moist mucous membranes. NECK: Normal range of motion, supple without lymphadenopathy, JVD, or masses. LUNGS: Breath sounds equal, clear to auscultation bilaterally. No wheezes, and no crackles. No accessory muscle use. HEART: Regular rate and rhythm, normal S1 and S2 without murmur, rub or gallop. ABDOMEN: Soft, non tender to palpation, only tender on right periumbilical region, not distended, normoactive bowel sounds, no rebound, no masses. No hepatomegaly or splenomegaly. skin suprapubic region/lower abdominal region with darkening and crusting around surgical scar. Some areas of desquamation, no purulent discharge. Umbilicus with crusting, erythema, and yellow discharge noted to open areas. MUSCULOSKELETAL: Normal range of motion at all joints. No bony deformities or tenderness. No CVA tenderness. UPPER EXTREMITIES: 2+ pulses, warm, well-perfused. No cyanosis. No clubbing. No peripheral edema. LOWER EXTREMITIES: 2+ pulses, warm, well-perfused. No calf tenderness. No peripheral edema. NEUROLOGICAL: Cranial nerves II-XII intact. Normal speech. Normal gait. PSYCHIATRIC: Cooperative. Good eye contact. Appropriate mood and affect. LABS Laboratory Results - last 24 hr 02/25/19 02/25/19 02/25/19 02:21 02:21 02:21 WBC 8.4 RBC 4.04 Hgb 12.6 Hct 37.3 MCV 92.4 MCH 31.2 MCHC 33.7 RDW 13.7 Plt Count 259 D MPV 8.8 Absolute Neuts (auto) 4.1 Neutrophils % 48.3 Lymphocytes % 41.2 H D Monocytes % 8.0 Eosinophils % 1.8 Basophils % 0.7 Nucleated RBC % 0 PT with INR 11.10 INR 0.94 PTT (Actin FS) 28.7 Sodium Potassium Chloride Carbon Dioxide Anion Gap BUN Creatinine Creat Clearance w eGFR Random Glucose Lactic Acid Calcium Phosphorus Magnesium Total Bilirubin AST ALT Alkaline Phosphatase Total Protein Albumin Lipase Serum , Qual Negative Urine Color Urine Appearance Urine pH Ur Specific Ball Urine Protein Urine Glucose (UA) Urine Ketones Urine Blood Urine Nitrite Urine Bilirubin Urine Urobilinogen Ur Leukocyte Esterase Blood Type Antibody Screen 02/25/19 02/25/19 02/25/19 02:21 02:21 02:21 WBC RBC Hgb Hct MCV MCH MCHC RDW Plt Count MPV Absolute Neuts (auto) Neutrophils % Lymphocytes % Monocytes % Eosinophils % Basophils % Nucleated RBC % PT with INR INR PTT (Actin FS) Sodium 139 Potassium 3.8 Chloride 106 Carbon Dioxide 26 Anion Gap 8 BUN 13 Creatinine 0.8 Creat Clearance w eGFR 83.66 Random Glucose 87 Lactic Acid 0.8 Calcium 9.0 Phosphorus 3.7 Magnesium 2.0 Total Bilirubin 0.3 AST 14 L ALT 31 Alkaline Phosphatase 50 Total Protein 7.1 Albumin 3.6 Lipase 190 Serum , Qual Urine Color Urine Appearance Urine pH Ur Specific Ball Urine Protein Urine Glucose (UA) Urine Ketones Urine Blood Urine Nitrite Urine Bilirubin Urine Urobilinogen Ur Leukocyte Esterase Blood Type O POSITIVE Antibody Screen Negative 02/25/19 02/25/19 02:28 09:30 WBC RBC Hgb Hct MCV MCH MCHC RDW Plt Count MPV Absolute Neuts (auto) Neutrophils % Lymphocytes % Monocytes % Eosinophils % Basophils % Nucleated RBC % PT with INR INR PTT (Actin FS) Sodium Potassium Chloride Carbon Dioxide Anion Gap BUN Creatinine Creat Clearance w eGFR Random Glucose Lactic Acid Calcium Phosphorus Magnesium Total Bilirubin AST ALT Alkaline Phosphatase Total Protein Albumin Lipase Serum , Qual Urine Color Yellow Urine Appearance Clear Urine pH 5.5 Ur Specific Ball 1.033 Urine Protein Negative Urine Glucose (UA) Negative Urine Ketones Trace H Urine Blood Negative Urine Nitrite Negative Urine Bilirubin Negative Urine Urobilinogen 1.0 Ur Leukocyte Esterase Negative Blood Type O POSITIVE Antibody Screen HOSPITAL COURSE: Date of Admission:02/25/19 Date of Discharge: 02/25/19 Imaging: CT abdomen/pelvis with intravenous contrast: unremarkable exam, as described above without CT evidence of an acute process in the abdomen and pelvis. Patient is a 33 year old female with a significant past medical history of abdominoplasty 10/2018 in [facility]. She reports no post op complications and well healed surgical scar. She tried a lightening clean to help lighten the surgical scarring hyperpigmentation. After using the cream, she developed skin irritation, superimposed bacterial infection and cellulitis. Hospital course by problem list: Contact dermatitis with superimposed bacterial infection/cellulitis She was initally given Zosyn IV in the ED and Cephalexin q gram q 8 hours. Wound and blood cultures are pending. She has no leukocytosis, is afebrile and vitals are stable. She will be sent home with PCP follow up and Keflex 500mg bid x 10 days. Will add Sylvadene cream to her lower abdominal irritation as it appears to be a superficial burn. Disposition: Discharge home with PCP follow up. Plastic surgery follow up as an outpatient. Minutes to complete discharge: 60 Discharge Summary Reason For Visit: CELLULITIS OF ABDOMINAL WALL,PAIN IN SURGICAL SCAR Current Active Problems Intractable abdominal pain (Acute) Pain in surgical scar (Acute) Condition: Guarded - Instructions Diet, Activity, Other Instructions: Mrs Roche: You were admitted with abdominal pain and skin irritation following use of a lightening cream. We will be sending you home today with the following recommendations: Contact dermatitis/bacterial infection/cellulitis You were treated with IV antibiotics while you were in the ER. You will be sent home with Keflex 500mg twice per day for 10 more days. A daily probiotic has been ordered for you. You have been referred to a plastic surgeon, please make an appointment. We have cultured your wound. We will call you with the results at the phone number you provided for us. Wound care: Clean the wound daily with sterile water (can purchase at your pharmacy or sterile saline) and pat dry. Apply the Silvadene cream twice daily on the lower abdomen. Do not apply it around the umbilicus (belly button). For the umbilicus, pat it dry and clean it off daily with sterile water. Take over the counter ibuprophen or Tylenol for pain. Please return to the ER if you have a fever of 101F or greater or if you start to have drainage from your umbilicus. Please follow up with your primary care doctor this week for follow up. Thank you for allowing us to care for you. Please call me with any questions that you may have. [facility] [phone] Referrals: Bimal Parrish MD [Staff Physician] - (call his office for an appointment) Disposition: HOME - Home Medications Comprehensive Discharge Medication List: Ambulatory Orders Bacitracin - [Bacitracin Topical Ointment -] 1 applic TP DAILY #1 tube 02/25/19 Cephalexin Monohydrate [Keflex -] 500 mg PO BID #20 capsule 02/25/19 Lactobacillus Acidophilus [Bacid -] 1 each PO DAILY #10 capsule 02/25/19 Silver Sulfadiazine 1% Top Cr [Silvadene -] 1 applic TP BID #1 jar 02/25/19 This patient is new to me today: Yes Date on this admission: 02/25/19 Emergency Visit: Yes ED Registration Date: 02/25/19 Care time: The patient presented to the Emergency Department on the above date and was hospitalized for further evaluation of their emergent condition. Critical Care patient: No - Discharge Referral Referred to [facility] Med P.C.: No
[2019-02-25 17:35] VITALS: BP 116/74; PULSE 78; TEMP 98.9
== END 2019-02-25 17:35 | disposition home or self-care (01) ==
LOC: JER 00:50 → JERBED 04:24
PROVIDERS: ADMIT Internal Medicine; ATTEND Nurse Practitioner Family
PROC: 3E03329 Introduction of Other Anti-infective into Peripheral Vein, Percutaneous Approach (ICD-10-PCS; principal; 2019-02-25)
PROC: 3E0337Z Introduction of Electrolytic and Water Balance Substance into Peripheral Vein, Percutaneous Approach (ICD-10-PCS; 2019-02-25)
PROC: 3E033NZ Introduction of Analgesics, Hypnotics, Sedatives into Peripheral Vein, Percutaneous Approach (ICD-10-PCS; 2019-02-25)
DX: L03.311 Cellulitis of abdominal wall (principal); B96.89 Other specified bacterial agents as the cause of diseases classified elsewhere; L25.9 Unspecified contact dermatitis, unspecified cause; L90.5 Scar conditions and fibrosis of skin; R10.9 Unspecified abdominal pain
CPT/HCPCS: 36415; 74177-TC; 80053; 81003; 83605; 83690; 83735; 84100; 84703; 85025; 85610; 85730; 86850; 86900; 86901; 87040; 87070; 87077; 87086; 87205; 87491; 87591; 87661; 99284-25; G0378; J0131

== ENCOUNTER 2020-01-15 12:59 | Emergency (ER) | payer OTHER ==
[2020-01-15 13:05] VITALS: BP 112/63; PULSE 80; TEMP 98.6; BMI 28.8
--- NOTE | 2020-01-15 14:55 | EKG ---
Test Reason : Blood Pressure : / mmHG Vent. Rate : 080 BPM Atrial Rate : 080 BPM P-R Int : 180 ms QRS Dur : 086 ms QT Int : 380 ms P-R-T Axes : 069 045 038 degrees QTc Int : 438 ms NORMAL SINUS RHYTHM NORMAL ECG WHEN COMPARED WITH ECG OF 16-NOV-2018 14:54, NO SIGNIFICANT CHANGE WAS FOUND Confirmed by Jenaro Byrd MD ([id number]) on 01/15/2020 2:54:56 PM Referred By: Confirmed By:Jenaro Byrd MD
--- NOTE | 2020-01-15 15:21 | PDOC ---
History of Present Illness - General Chief Complaint: Sore Throat Stated Complaint: SORE THROAT Time Seen by Provider: 01/15/20 14:13 History Source: Patient Exam Limitations: No Limitations - History of Present Illness Initial Comments: 01/15/20 14:56 Patient is here with multiple complaints, initial complaint is for fevers, chills, sore throat pain x2 to 3 days. Did not take temperature but feels had fevers. 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 Also complains of vaginal discharge for 2 to 3 days. States partner is without symptoms. States is associated with lower pelvic and abdominal pain. Has never had history of STIs, has no foul smell and no itching. Is this a multiple visit Asthma Patient?: No Timing/Duration: unsure Severity: mild, moderate Associated Symptoms: reports: fever/chills Past History - Travel Traveled outside of the country in the last 30 days: No Close contact w/someone who was outside of country & ill: No - Past Medical History Allergies/Adverse Reactions: Allergies Allergy/AdvReac Type Severity Reaction Status Date / Time No Known Allergies Allergy Verified 01/15/20 13:05 Home Medications: Ambulatory Orders Oseltamivir Phosphate [Tamiflu -] 75 mg PO BID #10 capsule 01/15/20 Asthma: No Cancer: No Cardiac Disorders: No COPD: No Diabetes: No HTN: No Seizures: No Thyroid Disease: No - Immunization History Td Vaccination: Yes TDAP Vaccination: Yes Immunization Up to Date: Yes - Psycho Social/Smoking Cessation Hx Smoking Status: No Smoking History: Never smoked Have you smoked in the past 12 months: No Number of Cigarettes Smoked Daily: 0 Information on smoking cessation initiated: No Hx Alcohol Use: No Drug/Substance Use Hx: No Hx Substance Use Treatment: No Review of Systems - Review of Systems Able to Perform ROS?: Yes Is the patient limited [place] proficient: Yes Constitutional: Yes: Symptoms Reported, See HPI, Fever, Malaise HEENTM: Yes: Symptoms Reported, See HPI, Nose Congestion, Throat Pain Respiratory: Yes: Symptoms reported, See HPI, Cough, Shortness of Breath ABD/GI: Yes: Symptoms Reported, Nausea Musculoskeletal: Yes: Symptoms Reported, See HPI, Muscle Pain, Other (General malaise ) Integumentary: No: Symptoms Reported Neurological: Yes: Symptoms reported, See HPI, Headache All Other Systems: Reviewed and Negative *Physical Exam - Vital Signs Last Vital Signs Temp Pulse Resp BP Pulse Ox 98.6 F 80 19 112/63 99 01/15/20 13:03 01/15/20 13:03 01/15/20 13:03 01/15/20 13:03 01/15/20 13:03 - Physical Exam General Appearance: Yes: Nourished, Appropriately Dressed, Apparent Distress, Mild Distress HEENT: positive: LUNA, TMs Normal (Effusion but landmarks easily visualized), Rhinorrhea Neck: positive: Supple, Lymphadenopathy (R), Lymphadenopathy (L). negative: Tender Respiratory/Chest: positive: Lungs Clear (Coarse but clear), Normal Breath Sounds Female Pelvic Exam: positive: normal external exam, cervical os closed, normal adnexa, normal size ovaries, discharge (Moderate amount of thin woods discharge without clumping, without foul odor). negative: CMT, lesions, adnexal tenderness Gastrointestinal/Abdominal: positive: Normal Bowel Sounds, Soft. negative: Tender, Distended, Guarding, Rebound Extremity: positive: Normal Capillary Refill, Normal Inspection Integumentary: positive: Dry, Warm, Pale Neurologic: positive: healthcare economics consultant II-XII NML intact, Fully Oriented, Alert, Normal Mood/ Affect, Normal Response, Motor Strength 5/5 Medical Decision Making - Medical Decision Making 01/15/20 15:41 Will treat for gonorrhea chlamydia with one-time doses of ceftriaxone 250 mg IM , and azithromycin 1 g p.o. due to significant amount of drainage. 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 Is in window for Tamiflu treatment Discharge - Discharge Information Problems reviewed: Yes Clinical Impression/Diagnosis: Influenzal acute upper respiratory infection, Concern about STD in female without diagnosis Condition: Stable Disposition: HOME - Admission No - Additional Discharge Information Prescriptions: Oseltamivir Phosphate [Tamiflu -] 75 mg PO BID #10 capsule - Follow up/Referral - Patient Discharge Instructions Patient Printed Discharge Instructions: DI for Influenza -- Adult, Facts About Sexually Transmitted Infections Additional Instructions: You have been treated for gonorrhea and chlamydia today with one-time dose of Rocephin 250 mg injection, and a azithromycin 1 g orally. Drink lots of fluids , water and avoid alcoholic beverages until symptoms have resolved. Your test results will not be available for 3 to 5 days but due to the contagiousness and danger of these diseases it is necessary to treat early before culture results have been obtained. Avoid any sexual activity until culture results are completed. You may call [phone] in 5 days if no word is been received about culture reports. Rest, drink lots of fluids, salt water gargles and steamy showers. [id number] medications for symptomatic relief including NyQuil, DayQuil, Tylenol or Motrin for pain and fevers. You have been prescribed Tamiflu, 1-75 mg tablet every 12 hours for 5 days for treatment of influenza. Understand that influenza takes somewhere between 1 week and 10 days for Resolution of symptoms. Is very contagious therefore avoid exposure to others especially vulnerable to severe disease. - Post Discharge Activity Work/Back to School Note: Back to Work
[2020-01-15] MEDS ORDERED: AZITHROMYCIN 500 MG TABLET PO ONE (15:24)
[2020-01-15 16:23] LABS: EPI CELLS 2.1 /HPF (0-5/HPF); HYALINE CASTS 3 /lpf (0-8); PH,URINE 5.5 (5.0-8.0); URINE APPEARANCE CLEAR; URINE BILIRUBIN NEGATIVE (NEGATIVE); URINE COLOR YELLOW; URINE GLUCOSE (UA) NEGATIVE (NEGATIVE); URINE KETONE NEGATIVE (NEGATIVE); URINE LEUK ESTERASE NEGATIVE (NEGATIVE); URINE NITRITE NEGATIVE (NEGATIVE); URINE PROTEIN NEGATIVE (NEGATIVE); URINE RBC 1 /hpf (0-4); URINE WBC 1 /hpf (0-5)
[2020-01-15] MEDS ORDERED: AZITHROMYCIN 250 MG TABLET ONE ×2 (16:28→16:29)
[2020-01-15] MEDS ORDERED: ACETAMINOPHEN 500 MG TABLET (FP) PO ONE (16:43)
[2020-01-15] MEDS ORDERED: ACETAMINOPHEN 500 MG TABLET (FP) ONE (16:44)
== END 2020-01-15 16:45 | disposition home or self-care (01) ==
LOC: JERFT 12:59
DX: J11.1 Influenza due to unidentified influenza virus with other respiratory manifestations (principal); Z71.1 Person with feared health complaint in whom no diagnosis is made
CPT/HCPCS: 36415; 81003; 84703; 87070; 87077; 87086; 87205; 87491; 87591; 93005; 93010; 99284-25

== ENCOUNTER 2022-04-09 11:06 | Emergency (ER) | payer BC, OTHER ==
[2022-04-09 11:21] VITALS: TEMP 98.9; BMI 33.0
[2022-04-09] MEDS ORDERED: MAG HYDROX/AL HYDROX/SIMETH 30 ML UNIT-DOSE CUP PO ONE (12:19)
[2022-04-09] MEDS ORDERED: FAMOTIDINE 10 MG TABLET PO ONE (12:20)
[2022-04-09] MEDS ORDERED: ACETAMINOPHEN 500 MG TABLET (FP) PO ONE (12:20)
[2022-04-09] MEDS ORDERED: FAMOTIDINE 10 MG TABLET ONE (12:30)
[2022-04-09] MEDS ORDERED: ACETAMINOPHEN 325 MG TABLET (FP) ONE (12:31)
[2022-04-09] MEDS ORDERED: MAG HYDROX/AL HYDROX/SIMETH 30 ML UNIT-DOSE CUP ONE (12:31)
[2022-04-09 13:11] LABS: EOS % 0.8 % (0-4.5); HEMATOCRIT 41.6 % (32.4-45.2); HEMOGLOBIN 13.8 GM/dL (10.7-15.3); LYMPH % 29.2 % (8-40); MCH 31.7 pg (25.7-33.7); MCHC 33.1 g/dl (32.0-36.0); MEAN CELL VOLUME 95.7 fl (80-96); MONO % 6.6 % (3.8-10.2); NEUT % 62.4 % (42.8-82.8); PLATELET COUNT 281 10^3/uL (134-434); RBC 4.35 M/mm3 (3.60-5.2); RDW 13.5 % (11.6-15.6); WHITE BLOOD COUNT 9.5 K/mm3 (4.0-10.0)
[2022-04-09 13:12] LABS: PH,URINE 5.5 (5.0-8.0); URINE APPEARANCE CLEAR; URINE BILIRUBIN NEGATIVE (NEGATIVE); URINE COLOR YELLOW; URINE GLUCOSE (UA) NEGATIVE (NEGATIVE); URINE KETONE NEGATIVE (NEGATIVE); URINE LEUK ESTERASE NEGATIVE (NEGATIVE); URINE NITRITE NEGATIVE (NEGATIVE); URINE PROTEIN NEGATIVE (NEGATIVE); URINE UROBILINOGEN 0.2 mg/dL (0.2-1.0)
[2022-04-09 13:15] LABS: HCG,QUALITATIVE URINE Negative
[2022-04-09 13:38] LABS: CALCIUM 9.4 mg/dL (8.5-10.1)
[2022-04-09 13:39] LABS: ALBUMIN 4.3 g/dl (3.4-5.0); BLOOD UREA NITROGEN 14.8 mg/dL (7-18)
[2022-04-09 13:42] LABS: CREATININE 0.9 mg/dL (0.55-1.3)
[2022-04-09 13:43] LABS: BILIRUBIN,TOTAL 0.7 mg/dL (0.2-1)
[2022-04-09 15:07] VITALS: BP 134/87; PULSE 89
== END 2022-04-09 15:06 | disposition home or self-care (01) ==
LOC: JER 11:06
DX: R00.2 Palpitations (principal)
CPT/HCPCS: 0241U-QW; 36415; 71046-TC-FY; 80053; 81003; 84703; 85025; 87086; 93005; 93010; 99285-25